=== PATIENT | male | born 1965 | race Caucasian/White ===

== ENCOUNTER → 2022-10-26 10:38 | Outpatient (BNVA) | payer OTHER, SELFPAY | PROVIDERS: Visit Provider Podiatrist Foot & Ankle Surgery | DX: G57.61 Lesion of plantar nerve, right lower limb; R60.9 Edema, unspecified | CPT/HCPCS: 73630 ==

== ENCOUNTER 2023-08-14 15:19 | Outpatient (CLI) | payer OTHER, SELFPAY ==
--- NOTE | 2023-08-14 15:15 | US_ITS ---
WS: [id number] ULTRASOUND SOFT TISSUES bilateral feet HISTORY: rule out neuroma BLE COMPARISON: None available. TECHNIQUE: 2-D and color Doppler imaging is submitted. RIGHT foot: Very small hypoechoic mass in the second intertarsal space measuring 3 x 4 x 2 mm. Suspic ious for Scott neuroma. No additional abnormality. LEFT foot: No abnormality noted LEFT foot in the intermetatarsal spaces. US/US soft tissue/extremity [id number] IMPRESSION: Suspicious for a tiny Scott neuroma RIGHT second intertarsal space.
== END 2023-08-14 15:20 | disposition home or self-care (01) ==
LOC: RAD 15:19
PROVIDERS: Visit Provider Podiatrist Foot & Ankle Surgery
DX: R20.0 Anesthesia of skin (principal); R20.2 Paresthesia of skin; R93.6 Abnormal findings on diagnostic imaging of limbs
CPT/HCPCS: 76882